=== PATIENT | female | born 1980 | race Caucasian/White ===

== ENCOUNTER 2022-09-13 11:33 | Emergency (ER) | payer BC, SELFPAY ==
--- NOTE | 2022-09-13 11:35 | ED.EXTPRO ---
HPI - Extremity Problem General Chief complaint: Extremity Problem,Nontraumatic Stated complaint: Left Hand Thumb Pain Time Seen by Provider: 09/13/22 11:34 Source: patient Mode of arrival: ambulatory Limitations: no limitations History of Present Illness HPI Narrative: Carmela is a 42-year-old female patient presenting to clinic today with complaints of left thumb pain times 2-3 days. She reports she had an ingrown fingernail and pulled it out a few days ago. Developed some drainage and pain over that area and into the thumb afterwards. States that her the thumb feels feverish to touch and is throbbing. Has a knotted area to the volar aspect of the thumb. No active drainage at this time Related Data Allergies Allergy/AdvReac Type Severity Reaction Status Date / Time No Known Allergies Allergy Verified 09/13/22 11:35 Review of Systems Review of Systems: Pertinent positives per HPI. Patient denies any fever, chills, rash, headache, visual changes, dizziness, cough, runny nose, sore throat, shortness of breath, chest pain, palpitations, nausea, vomiting, diarrhea, constipation, abdominal pain, or any urinary issues. PMFSH Surgical History Surgical History Delivery by section Hx of tonsillectomy Family History Family History Father Lung cancer Sibling Breast cancer Grandparent Colon cancer Social History Social History Smoking status: Never smoker Alcohol use details: occasional Substance use: never Gender identity (if verbalized by the patient): Female Sexual Orientation (if Verbalized by the Patient): Straight or Heterosexual Comments At the time of my signature, I reviewed and agree with the nursing past medical, surgical, social, and family history. There is no relevant family history pertinent to the patient complaint. Exam Narrative: General: Well-developed, well nourished, in no apparent distress Head: Normocephalic, atraumatic. Cardio: Regular rate and rhythm, s1 and s2 normal, no murmur appreciated. Resp: Clear to auscultation bilaterally, no rhonchi, rales, wheezing or rubs. Musculoskeletal: No deformity, tender to palpation over the volar aspect of the left thumb, yellow discoloration/discharge noted to the lateral aspect of the left thumb nail, mild erythema, grossly normal range of motion, muscle strength strong and equal, peripheral pulse strong, no cyanosis, normal gait and station Course Course Emergency Course: Portions of this record may have been created with voice recognition software. Level of Care: Express Care Visit Vital Signs Vital signs: Vital signs reviewed MDM - Extremity (Nontraumatic) MDM Narrative Medical decision making narrative: At the time of visit patient is resting on the exam table. I suspect patient has a paronychia to the left thumb. Will send in prescription for Keflex and supportive measures were discussed with the patient she voiced understanding discharge instructions and agrees to treatment plan. Differential Diagnosis Differential diagnosis: Likely cellulitis and other (Paronychia, nail infection, abscess) Discharge Plan Discharge Clinical Impression: Paronychia Patient Disposition: Home, Self-Care Condition: Stable Instructions: Antibiotic Form, Paronychia (ED) Additional Instructions: Keep area clean and dry May apply triple antibiotic ointment to the affected area Take Keflex as prescribed May take Tylenol/Motrin as needed for pain or fever Follow-up with your PCP in 1 week if symptoms persist or sooner if they worsen Prescriptions: New cephalexin 500 mg capsule 500 mg PO Q8H 7 Days Qty: 21 0RF Follow-up/Referrals: Ciara Treviño MD [Primary Care Provider] - Time of Disposition: 11:46 Qualit
[2022-09-13 11:43] VITALS: BP 129/70; PULSE 108; RESP 16; TEMP 37.3; O2SAT 100
== END 2022-09-13 11:53 | disposition home or self-care (01) ==
LOC: EXPCOLL 11:37
PROVIDERS: Emergency Provider Nurse Practitioner Family; PCP Family Medicine
DX: L03.012 Cellulitis of left finger (principal)
CPT/HCPCS: 99213; G0463

== ENCOUNTER 2023-09-08 02:24 | Emergency (ER) | payer BC, SELFPAY ==
[2023-09-08 02:32] VITALS: BP 130/89; PULSE 82; RESP 17; TEMP 36.6; O2SAT 97
--- NOTE | 2023-09-08 02:50 | ED.BACK ---
HPI - Back Pain/Injury General Chief Complaint: Back Pain/Injury Stated Complaint: Left upper back pain Time Seen by Provider: 09/08/23 02:35 History of Present Illness HPI Narrative: Patient is a 43-year-old female who presents to the emergency department this evening complaining of left upper back pain. Patient states that the pain started 3 days ago when she woke up from sleep and initially she thought that she may have slept well. Pain did slightly improve throughout the day but then the next day she continued to still feel the pain and states that she noticed this and movements will worsen the pain. She states that she feels as though the pain does radiate to left shoulder but denies any left shoulder pain or shoulder weakness. Denies any additional injuries or concerns including any chest pain or shortness of breath. Patient states that she has tried [id number] medications with little to no relief. No additional symptoms or concerns at this time. Related Data Allergies Allergy/AdvReac Type Severity Reaction Status Date / Time No Known Allergies Allergy Verified 09/08/23 02:37 Review of Systems Review of Systems: All systems are reviewed and are negative unless stated otherwise in the HPI. [facility] Surgical History Surgical History Delivery by section Hx of tonsillectomy Family History Family History Father Lung cancer Sibling Breast cancer Grandparent Colon cancer Social History Social History Smoking status: Never smoker Alcohol use details: occasional Substance use: never Gender identity (if verbalized by the patient): Female Sexual Orientation (if Verbalized by the Patient): Straight or Heterosexual Exam Narrative: General: Alert, awake, afebrile, in no acute distress. HEENT: PERRL, no rhinorrhea, no post nasal drip, oropharynx clear. Neck: No midline tenderness to palpation over the cervical spine. Cardiovascular: Regular rate and rhythm, no murmurs, rubs or gallops, no peripheral edema. Respiratory: Clear to auscultation bilaterally, no tachypnea, no wheezing, no rhonchi, no rubs, no respiratory distress. Abdomen: Soft, nontender, nondistended, no rebound, no guarding, no peritoneal signs. Musculoskeletal: Point tenderness along the medial aspect of the left scapula/the left paraspinal thoracic muscles. Back: No midline tenderness to palpation over the thoracic or lumbar spine, no step-offs or deformities. Skin: No rashes or petechia, no signs of infection. Neurological: Alert and oriented to person, place, and time. Follows all commands. No focal deficits, speech is clear and fluent. Course Vital Signs Vital signs: Vital Signs Temperature 97.8 F 09/08/23 02:32 Pulse Rate 82 09/08/23 02:32 Respiratory Rate 17 09/08/23 02:32 Blood Pressure 130/89 09/08/23 02:32 Pulse Oximetry 97 09/08/23 02:32 Oxygen Delivery Room Air 09/08/23 02:32 Temperature 97.8 F 09/08/23 02:32 Pulse Rate 82 09/08/23 02:32 Respiratory Rate 17 09/08/23 02:32 Blood Pressure 130/89 09/08/23 02:32 Pulse Oximetry 97 09/08/23 02:32 Oxygen Delivery Room Air 09/08/23 02:32 MDM - Back Pain/Injury MDM Narrative Medical decision making narrative: The patient was evaluated by myself in the emergency department. History is obtained from patient who is an independent historian and physical exam was performed. External medical records were reviewed at this time. Patient was administered 50 mg of IM Toradol and a Lidoderm patch and she was in form that a script for a muscle relaxer will be sent to her pharmacy to use as needed. She was also instructed to use heating pads and perform some upper back stretches which will help with her left upper back muscle pain. Comorbidities impacting this v
[2023-09-08] MEDS: KETOROLAC 30 MG/ML VIAL (*BKC) 15 MG IM (02:58)
[2023-09-08] MEDS: LIDOCAINE 5% PATCH 1 PATCH (03:02)
--- NOTE | 2023-09-08 03:02 | PC.NURSE ---
Lidocaine patch given at this time per EDP Boby.
[2023-09-08 03:20] VITALS: BP 120/61; PULSE 73; RESP 16; O2SAT 97
== END 2023-09-08 03:21 | disposition home or self-care (01) ==
PROVIDERS: Emergency Provider Emergency Medicine; PCP Family Medicine
DX: S29.012A Strain of muscle and tendon of back wall of thorax, initial encounter (principal); T14.90XA Injury, unspecified, initial encounter
CPT/HCPCS: 96372; 99283; A9270; J1885

== ENCOUNTER 2023-11-17 00:26 | Emergency (ER) | payer BC, SELFPAY ==
--- NOTE | ~2023-11-17 | XR_ITS ---
EXAMINATION: XR shoulder LT min 2V DATE: 11/17/2023 01:37 INDICATION: Left shoulder pain. TECHNIQUE: 4 views of left shoulder were obtained. COMPARISON: None. FINDINGS: Bone alignment is normal. No fracture. Joint spaces are normal. IMPRESSION: 1. Normal left shoulder. Reviewed, dictated and finalized at location A. IMPRESSION: 1. Normal left shoulder.
[2023-11-17 00:32] VITALS: BP 130/80; PULSE 85; RESP 14; TEMP 36.4; O2SAT 100
--- NOTE | 2023-11-17 02:02 | ED.UPPEXIN ---
HPI - Extremity Injury (Upper) General Chief Complaint: Extremity Injury, Upper Stated Complaint: L shoulder Time Seen by Provider: 11/17/23 01:30 History of Present Illness HPI narrative: This is a 43-year-old female with a past medical history significant for previous episodes of impingement/bursitis. Today patient presents to the ED for evaluation of left shoulder pain. Patient states she slept awkwardly and woke up last night feeling any pain in her left shoulder. She has difficulty abducting or raising her left arm above her head. Difficulty with overhead movements. Pain is directly localized to the anterior lateral AC joint. Patient states this feels exactly like the last time she had impingement/bursitis. She has previously seen an orthopedic surgeon for a cortisone injection which alleviated her symptoms previously. She was otherwise in her normal state of health. Denies any weakness in the arm or innersole maker strength loss. No neck pain, headache or vision changes. No chest discomfort or trauma. Was otherwise in her normal state of health. Related Data Allergies Allergy/AdvReac Type Severity Reaction Status Date / Time No Known Allergies Allergy Verified 11/17/23 00:35 Review of Systems Review of Systems: As reviewed above in the [facility] Surgical History Surgical History Delivery by section Hx of tonsillectomy Family History Family History Father Lung cancer Sibling Breast cancer Grandparent Colon cancer Social History Social History Smoking status: Never smoker Alcohol use details: occasional Substance use: never Gender identity (if verbalized by the patient): Female Sexual Orientation (if Verbalized by the Patient): Straight or Heterosexual Exam Narrative: GENERAL: [Well-appearing, well-nourished, and in no acute distress.] HEAD: [Normocephalic, atraumatic.] EYES: [PERRLA and EOMI.] ENT: Nares clear, no rhinorrhea or epistaxis. Mucous membranes moist. NECK: Supple. CHEST: [Clear to auscultation. No respiratory distress.] HEART: [Regular rate and rhythm]. No murmur heard. [Normal peripheral pulses.] ABDOMEN: [Soft, nondistended], [nontender], [No rigidity or guarding] EXTREMITIES: Left lateral aspect AC joint tenderness pinpoint without any step-offs deformities. Limited abduction, flexion of the arm past 90?. Positive Neer's and Ulrich testing. Positive lift-off test. Contralateral arm without issue. Forepart Rounder strength 5/5 elbow flexion extension 5/5. No scapular pain. SKIN: Warm, dry, no rash. NEURO: [No focal deficits]. Alert and oriented [x3.] PSYCH: [Normal mood and affect.] Course Vital Signs Vital signs: Vital Signs Temperature 36.4 C 11/17/23 00:32 Pulse Rate 85 11/17/23 00:32 Respiratory Rate 14 11/17/23 00:32 Blood Pressure 130/80 11/17/23 00:32 Pulse Oximetry 100 11/17/23 00:32 Temperature 36.4 C 11/17/23 00:32 Pulse Rate 85 11/17/23 00:32 Respiratory Rate 14 11/17/23 00:32 Blood Pressure 130/80 11/17/23 00:32 Pulse Oximetry 100 11/17/23 00:32 MDM - Extremity Injury (Upper) MDM Narrative Medical decision making narrative: This is a 43-year-old female presenting with signs and symptoms of AC joint impingement/bursitis in her left upper extremity. Physical exam findings consistent with bursitis. Has been treated in the past with physical therapy and hydrocortisone injection into the joint. Has not had any issues in the last 15 years. Other differential diagnosis includes fracture, dislocation, clavicular separation. A two view x-ray was obtained and she was treated symptomatically with Toradol, methocarbamol, Tylenol and provide a sling for comfort. X-ray was independently reviewed by myself and does not show any kind of
[2023-11-17] MEDS: methocarbamoL 500 MG TABLET PO (02:12)
[2023-11-17] MEDS: ACETAMINOPHEN 500 MG TABLET 1000 MG PO (02:12)
[2023-11-17] MEDS: KETOROLAC 30 MG/ML VIAL (*BKC) IM (02:12)
[2023-11-17 02:23] VITALS: PULSE 68; RESP 16; TEMP 36.6; O2SAT 98
--- NOTE | 2023-11-17 02:25 | PC.NURSE ---
vrbo apply sling left arm
== END 2023-11-17 02:26 | disposition home or self-care (01) ==
LOC: ANHED 02:09
PROVIDERS: Emergency Provider Student in an Organized Health Care Education/Training Program; PCP Family Medicine
DX: M25.812 Other specified joint disorders, left shoulder (principal); M75.52 Bursitis of left shoulder
CPT/HCPCS: 73030; 96372; 99283; A4565; A9270; J1885